=== PATIENT | male | born 1970 | race Caucasian/White ===

== ENCOUNTER 2022-04-26 13:16 | Day surgery (SDC) | payer OTHER ==
[~2022-04-26] VITALS: Ht 182.9 cm; Wt 202.9 kg
[2022-04-26 14:30] VITALS: BP 146/77; PULSE 62; TEMP 97.7
--- NOTE | 2022-04-26 14:30 | NUR ---
pt to [facility] via cart from [place], walked to chair with standby help, in room, pt drinks sprite, no c/o, call light in reach
[2022-04-26 14:45] VITALS: BP 124/76; PULSE 58
[2022-04-26 15:00] VITALS: BP 128/78; PULSE 58
--- NOTE | 2022-04-26 15:30 | NUR ---
iv d'cd intact, pt up in room dressed and up to b/r, into see pt and talk about results, then reviewed post inst. and precautions with pt with verbal understanding, pt discharged via w/c to car with
[2022-04-26] MEDS ORDERED: LIPITOR20 MG PO (15:52)
[2022-04-26] MEDS ORDERED: PEPCID 20MG TAB20 MG PO (15:53)
[2022-04-26] MEDS ORDERED: PROZAC 10MG10 MG PO (15:54)
[2022-04-26] MEDS ORDERED: LASIX 40MG TABL40 MG PO (15:56)
[2022-04-26] MEDS ORDERED: PRINIVIL40 MG PO (15:57)
[2022-04-26] MEDS ORDERED: GLUCOPHAGE500 MG/TAB PO (15:58)
[2022-04-26] MEDS ORDERED: LOPRESSOR 550 MG/TAB PO (15:59)
[2022-04-26] MEDS ORDERED: PROTONIX 40MG T40 MG PO (16:00)
[2022-04-26] MEDS ORDERED: ASPIRIN 81M81 MG/TA2 PO (16:01)
[2022-04-26] MEDS ORDERED: K-DUR20 MEQ PO (16:02)
[2022-04-26] MEDS ORDERED: MOBIC15 MG PO (16:03)
[2022-04-26 16:06] VITALS: BP 148/85; PULSE 64; TEMP 96.6
== END 2022-04-26 15:30 | disposition home or self-care (01) ==
LOC: SDCO 13:16
DX: K21.9 Gastro-esophageal reflux disease without esophagitis (principal); E66.01 Morbid (severe) obesity due to excess calories; Z68.43 Body mass index [BMI] 50.0-59.9, adult
CPT/HCPCS: J2704